=== PATIENT | male | born 1995 | race Two or more races ===

== ENCOUNTER → 2024-03-19 | Outpatient (REF) | payer OTHER | LOC: M SMT 11:39 | PROVIDERS: ATTEND Urology | DX: Z30.2 Encounter for sterilization (principal) ==

== ENCOUNTER → 2024-04-10 | Outpatient (REF) | payer OTHER ==
[2024-04-10 13:46] LABS: SEMEN APPEARANCE OPAQUE (OPAQUE); SEMEN VISCOSITY LIQUID (LIQUID); SEMEN VOLUME 2.8 ml (2.0-5.0); SEMEN pH 8.5 (7.0-8.0); WBC CONCENTRATION >1 M/ml (<=1 M/ml)
== END ==
LOC: M SMT 11:49
PROVIDERS: ATTEND Urology
DX: Z30.2 Encounter for sterilization (principal)